=== PATIENT | female | born 2000 | race Caucasian/White ===

== ENCOUNTER 2020-08-12 12:25 | Outpatient (CLI) | payer OTHER ==
[~2020-08-12] VITALS: Ht 154.9 cm; Wt 70.5 kg
[2020-08-12 12:30] VITALS: Ht 154.9 cm; Wt 70.5 kg
[2020-08-12] MEDS ORDERED: PHENERGAN25 M1 PO (12:32)
[2020-08-12] MEDS ORDERED: PEPCID AC20 MG PO (12:32)
[2020-08-12] MEDS ORDERED: CEPHALEXIN500 M1 PO (12:59)
[2020-08-12] MEDS ORDERED: MACROBID100 MG PO (12:59)
[2020-08-12 13:16] VITALS: BP 114/75
[2020-08-12 14:12] LABS: BILIRUBIN NEGATIVE (NEGATIVE); KETONE SMALL mg/dL (NEGATIVE); NITRITE NEGATIVE (NEGATIVE); UROBILINOGEN NORMAL mg/dL (< 2)
== END 2020-08-12 15:45 | disposition home or self-care (01) ==
LOC: D.ER 12:25 → D.LDO 12:25 → EDSTATUS 13:57 → D.LDO 15:45
PROVIDERS: ATTEND Family Medicine
DX: O26.899 Other specified pregnancy related conditions, unspecified trimester (principal); R10.9 Unspecified abdominal pain